=== PATIENT | male | born 1970 | race Caucasian/White ===

== ENCOUNTER 2019-08-11 18:51 | Inpatient (IN) | payer MEDICAID ==
[~2019-08-11] VITALS: Ht 172.7 cm; Wt 80.7 kg
[2019-08-11 23:00] VITALS: BP 116/81
[2019-08-12] MEDS ORDERED: PHENOL 1.4% 177 ML SPRAY BOTTLE PO PRN (00:30)
[2019-08-12] MEDS: MELATONIN 5 MG TABLET PO SCH ×2 (00:30→20:38)
[2019-08-12 07:45] VITALS: BP 109/78
[2019-08-12] MEDS: FAMOTIDINE 20 MG TABLET PO SCH ×2 (08:09→20:38)
[2019-08-12] MEDS: MULTIVITAMINS WITH MINERALS, THERAPEUTIC TABLET PO SCH (08:09)
[2019-08-12] MEDS: LevETIRAcetam 500 MG TABLET PO SCH ×2 (08:09→20:38)
[2019-08-12] MEDS: LIDOCAINE 5% TRANSDERMAL PATCH TD SCH ×2 (08:09→09:32)
[2019-08-12] MEDS: APIXABAN 5 MG TABLET PO SCH ×2 (08:09→20:38)
[2019-08-12 08:13] LABS: BASOPHILS % (AUTO) 0.9 % (0.0-2.0); EOSINOPHILS % (AUTO) 4.9 % (1.0-6.0); HEMATOCRIT 41.7 % (41-53); HEMOGLOBIN 14.1 g/dL (13.5-17.5); LYMPHOCYTES # (AUTO) 0.6 K/uL (1.0-4.8); LYMPHOCYTES % (AUTO) 17.7 % (22.0-44.0); MEAN CORPUSCULAR HEMOGLOBIN 29.1 pg (26.0-34.0); MEAN CORPUSCULAR HGB CONC 33.8 G/dL (31.0-37.0); MEAN CORPUSCULAR VOLUME 86 fL (80-100); MONOCYTES # (AUTO) 0.8 K/uL (0.1-1.0); MONOCYTES % (AUTO) 23.1 % (2.0-9.0); NEUTROPHILS # (AUTO) 1.7 K/uL (1.8-7.7); NEUTROPHILS % (AUTO) 53.4 % (40.0-70.0); PLATELET COUNT (AUTO) 170 K/uL (150-450); RED BLOOD CELL COUNT(AUTO) 4.83 MIL/uL (4.50-5.90); RED CELL DISTRIBUTION WIDTH 15.3 % (11.5-14.5)
[2019-08-12 08:23] LABS: ALANINE AMINOTRANSFERASE 48 U/L (12-78); ALBUMIN 3.9 g/dL (3.4-5.0); ALKALINE PHOSPHATASE 73 U/L (46-116); ANION GAP 10 mmol/L (8-16); ASPARTATE AMINOTRANSFERASE 46 U/L (15-37); BILIRUBIN,TOTAL 0.5 mg/dL (0.1-1.0); CALCIUM, TOTAL 9.2 mg/dL (8.8-10.5); CARBON DIOXIDE 27 mmol/L (22-29); CHLORIDE 106 mmol/L (98-107); CREATININE 1.04 mg/dL (0.60-1.30); GLOMERULAR FILTR. RATE CALC > 60 mL/min (>60); GLUCOSE,RANDOM 106 mg/dL (70-110); POTASSIUM 3.7 mmol/L (3.5-5.1); SODIUM SERUM 143 mmol/L (136-145); TOTAL PROTEIN, SERUM 7.9 g/dL (6.4-8.2)
[2019-08-12 08:27] LABS: UREA NITROGEN, BLOOD 18 mg/dL (7-18)
[2019-08-12] MEDS: POLYETHYLENE GLYCOL 3350 17 GM PACKET PO SCH (09:31)
[2019-08-12 16:30] VITALS: BP 114/76
[2019-08-12] MEDS: DOCUSATE SODIUM 250 MG CAPSULE PO SCH (20:37)
[2019-08-12] MEDS: -LIDODERM PATCH NOTE- MISC SCH ×2 (20:37)
[2019-08-12] MEDS: AMITRIPTYLINE HCL 50 MG TABLET PO SCH (20:37)
[2019-08-13 03:00] VITALS: BP 121/78
[2019-08-13 07:28] VITALS: BP 106/77
[2019-08-13] MEDS: FAMOTIDINE 20 MG TABLET PO SCH ×2 (07:42→20:18)
[2019-08-13] MEDS: MULTIVITAMINS WITH MINERALS, THERAPEUTIC TABLET PO SCH (07:42)
[2019-08-13] MEDS: APIXABAN 5 MG TABLET PO SCH ×2 (07:42→20:17)
[2019-08-13] MEDS: LevETIRAcetam 500 MG TABLET PO SCH ×2 (07:42→20:18)
[2019-08-13] MEDS: POLYETHYLENE GLYCOL 3350 17 GM PACKET PO SCH (07:43)
[2019-08-13] MEDS: LIDOCAINE 5% TRANSDERMAL PATCH TD SCH ×2 (07:44)
[2019-08-13] MEDS: HYDROCORTISONE 1% 30 GM CREAM TP PRN ×2 (09:24→15:31)
[2019-08-13 17:06] VITALS: BP 105/72
[2019-08-13] MEDS: MELATONIN 5 MG TABLET PO SCH (20:17)
[2019-08-13] MEDS: AMITRIPTYLINE HCL 50 MG TABLET PO SCH (20:17)
[2019-08-13] MEDS: DOCUSATE SODIUM 250 MG CAPSULE PO SCH (20:18)
[2019-08-13] MEDS: -LIDODERM PATCH NOTE- MISC SCH ×2 (20:18)
[2019-08-14 02:30] VITALS: BP 107/83
[2019-08-14 08:00] VITALS: BP 116/79
[2019-08-14] MEDS: FAMOTIDINE 20 MG TABLET PO SCH ×2 (08:20→21:17)
[2019-08-14] MEDS: APIXABAN 5 MG TABLET PO SCH ×2 (08:20→21:17)
[2019-08-14] MEDS: LIDOCAINE 5% TRANSDERMAL PATCH TD SCH ×2 (08:21)
[2019-08-14] MEDS: LevETIRAcetam 500 MG TABLET PO SCH ×2 (08:21→21:17)
[2019-08-14] MEDS: MULTIVITAMINS WITH MINERALS, THERAPEUTIC TABLET PO SCH (08:21)
[2019-08-14] MEDS: POLYETHYLENE GLYCOL 3350 17 GM PACKET PO SCH (08:21)
[2019-08-14 16:36] VITALS: BP 133/78
[2019-08-14] MEDS: MELATONIN 5 MG TABLET PO SCH (21:16)
[2019-08-14] MEDS: DOCUSATE SODIUM 250 MG CAPSULE PO SCH (21:17)
[2019-08-14] MEDS: -LIDODERM PATCH NOTE- MISC SCH ×2 (21:17→21:18)
[2019-08-14] MEDS: AMITRIPTYLINE HCL 50 MG TABLET PO SCH (21:17)
[2019-08-15 00:47] VITALS: BP 103/79
[2019-08-15 07:30] VITALS: BP 121/74
[2019-08-15] MEDS: LevETIRAcetam 500 MG TABLET PO SCH ×2 (07:44→20:24)
[2019-08-15] MEDS: FAMOTIDINE 20 MG TABLET PO SCH ×2 (07:44→20:23)
[2019-08-15] MEDS: POLYETHYLENE GLYCOL 3350 17 GM PACKET PO SCH (07:44)
[2019-08-15] MEDS: APIXABAN 5 MG TABLET PO SCH ×2 (07:44→20:24)
[2019-08-15] MEDS: LIDOCAINE 5% TRANSDERMAL PATCH TD SCH ×2 (07:45)
[2019-08-15] MEDS: MULTIVITAMINS WITH MINERALS, THERAPEUTIC TABLET PO SCH (07:46)
[2019-08-15] MEDS: ACETAMINOPHEN 325 MG TABLET PO PRN ×2 (13:06→20:25)
[2019-08-15] MEDS ORDERED: OxyCODONE HCL/ACETAMINOPHEN 5-325 MG TABLET PO PRN (14:15)
[2019-08-15 17:12] VITALS: BP 125/89
[2019-08-15] MEDS: CAMPHOR/MENTHOL 222 ML LOTION TP SCH ×2 (17:15→20:26)
[2019-08-15] MEDS: -LIDODERM PATCH NOTE- MISC SCH ×2 (20:23)
[2019-08-15] MEDS: AMITRIPTYLINE HCL 50 MG TABLET PO SCH (20:24)
[2019-08-15] MEDS: DOCUSATE SODIUM 250 MG CAPSULE PO SCH (20:24)
[2019-08-15] MEDS: MELATONIN 5 MG TABLET PO SCH (20:24)
[2019-08-15] MEDS: GuaiFENesin/D-METHORPHAN/PHENYLEPH 5 ML LIQUID ORAL.SYG PO PRN (20:26)
[2019-08-16 00:33] VITALS: BP 107/78
[2019-08-16 07:30] VITALS: BP 101/70
[2019-08-16] MEDS: POLYETHYLENE GLYCOL 3350 17 GM PACKET PO SCH (09:00)
[2019-08-16] MEDS: LIDOCAINE 5% TRANSDERMAL PATCH TD SCH ×2 (10:04→10:05)
[2019-08-16] MEDS: MULTIVITAMINS WITH MINERALS, THERAPEUTIC TABLET PO SCH (10:05)
[2019-08-16] MEDS: LevETIRAcetam 500 MG TABLET PO SCH ×2 (10:05→20:04)
[2019-08-16] MEDS: APIXABAN 5 MG TABLET PO SCH ×2 (10:05→20:04)
[2019-08-16] MEDS: FAMOTIDINE 20 MG TABLET PO SCH ×2 (10:05→20:04)
[2019-08-16] MEDS: MEGESTROL ACETATE 400 MG/10 ML SUSPENSION UDCUP PO SCH (10:06)
[2019-08-16] MEDS: CAMPHOR/MENTHOL 222 ML LOTION TP SCH ×3 (10:07→20:09)
[2019-08-16] MEDS: CALCIUM CARBONATE 500 MG CHEWABLE TABLET CHEW SCH ×3 (13:38→20:04)
[2019-08-16] MEDS ORDERED: MULT1CAP32 PO (16:10)
[2019-08-16] MEDS ORDERED: AMIT50TA3 PO (16:10)
[2019-08-16] MEDS ORDERED: ESOM20CA31 PO (16:10)
[2019-08-16] MEDS ORDERED: LEVE500T53 PO (16:10)
[2019-08-16] MEDS ORDERED: MELA5TAB3 PO (16:10)
[2019-08-16 16:56] VITALS: BP 112/72
[2019-08-16] MEDS: AMITRIPTYLINE HCL 50 MG TABLET PO SCH (20:03)
[2019-08-16] MEDS: DOCUSATE SODIUM 250 MG CAPSULE PO SCH (20:03)
[2019-08-16] MEDS: MELATONIN 5 MG TABLET PO SCH (20:03)
[2019-08-16] MEDS: -LIDODERM PATCH NOTE- MISC SCH ×2 (21:50)
[2019-08-17 00:17] VITALS: BP 111/70
[2019-08-17 08:00] VITALS: BP 125/83
[2019-08-17] MEDS: MEGESTROL ACETATE 400 MG/10 ML SUSPENSION UDCUP PO SCH (08:31)
[2019-08-17] MEDS: FAMOTIDINE 20 MG TABLET PO SCH ×2 (08:31→20:38)
[2019-08-17] MEDS: LevETIRAcetam 500 MG TABLET PO SCH ×2 (08:32→20:38)
[2019-08-17] MEDS: POLYETHYLENE GLYCOL 3350 17 GM PACKET PO SCH (08:32)
[2019-08-17] MEDS: LIDOCAINE 5% TRANSDERMAL PATCH TD SCH ×2 (08:32)
[2019-08-17] MEDS: CALCIUM CARBONATE 500 MG CHEWABLE TABLET CHEW SCH ×4 (08:32→20:38)
[2019-08-17] MEDS: APIXABAN 5 MG TABLET PO SCH ×2 (08:32→20:40)
[2019-08-17] MEDS: MULTIVITAMINS WITH MINERALS, THERAPEUTIC TABLET PO SCH (08:32)
[2019-08-17] MEDS: CAMPHOR/MENTHOL 222 ML LOTION TP SCH ×3 (08:33→20:39)
[2019-08-17] MEDS: ONDANSETRON HCL 4 MG TABLET PO PRN (12:27)
[2019-08-17 16:10] VITALS: BP 104/78
[2019-08-17] MEDS: HYDROCORTISONE 1% 30 GM CREAM TP PRN (18:21)
[2019-08-17] MEDS: GuaiFENesin/D-METHORPHAN/PHENYLEPH 5 ML LIQUID ORAL.SYG PO PRN (20:38)
[2019-08-17] MEDS: AMITRIPTYLINE HCL 50 MG TABLET PO SCH (20:38)
[2019-08-17] MEDS: MELATONIN 5 MG TABLET PO SCH (20:38)
[2019-08-17] MEDS: DOCUSATE SODIUM 250 MG CAPSULE PO SCH (20:39)
[2019-08-17] MEDS: -LIDODERM PATCH NOTE- MISC SCH ×2 (20:40)
[2019-08-18] VITALS: BP 110/70
[2019-08-18 06:34] LABS: BASOPHILS % (AUTO) 1.2 % (0.0-2.0); EOSINOPHILS % (AUTO) 6.9 % (1.0-6.0); HEMATOCRIT 42.1 % (41-53); HEMOGLOBIN 13.7 g/dL (13.5-17.5); LYMPHOCYTES # (AUTO) 0.8 K/uL (1.0-4.8); LYMPHOCYTES % (AUTO) 30.1 % (22.0-44.0); MEAN CORPUSCULAR HEMOGLOBIN 28.1 pg (26.0-34.0); MEAN CORPUSCULAR HGB CONC 32.6 G/dL (31.0-37.0); MEAN CORPUSCULAR VOLUME 86 fL (80-100); MONOCYTES # (AUTO) 0.4 K/uL (0.1-1.0); MONOCYTES % (AUTO) 15.5 % (2.0-9.0); NEUTROPHILS # (AUTO) 1.2 K/uL (1.8-7.7); NEUTROPHILS % (AUTO) 46.3 % (40.0-70.0); PLATELET COUNT (AUTO) 171 K/uL (150-450); RED CELL DISTRIBUTION WIDTH 15.1 % (11.5-14.5)
[2019-08-18 06:52] LABS: ALANINE AMINOTRANSFERASE 57 U/L (12-78); ALBUMIN 3.6 g/dL (3.4-5.0); ALKALINE PHOSPHATASE 80 U/L (46-116); ANION GAP 8 mmol/L (8-16); ASPARTATE AMINOTRANSFERASE 38 U/L (15-37); BILIRUBIN,TOTAL 0.4 mg/dL (0.1-1.0); CALCIUM, TOTAL 9.3 mg/dL (8.8-10.5); CARBON DIOXIDE 28 mmol/L (22-29); CHLORIDE 107 mmol/L (98-107); CREATININE 1.02 mg/dL (0.60-1.30); GLOMERULAR FILTR. RATE CALC > 60 mL/min (>60); GLUCOSE,RANDOM 97 mg/dL (70-110); POTASSIUM 3.5 mmol/L (3.5-5.1); SODIUM SERUM 143 mmol/L (136-145); TOTAL PROTEIN, SERUM 7.5 g/dL (6.4-8.2); UREA NITROGEN, BLOOD 10 mg/dL (7-18)
[2019-08-18 07:01] VITALS: BP 116/76
[2019-08-18] MEDS: LIDOCAINE 5% TRANSDERMAL PATCH TD SCH ×2 (08:21→08:22)
[2019-08-18] MEDS: APIXABAN 5 MG TABLET PO SCH ×2 (08:22→20:31)
[2019-08-18] MEDS: CAMPHOR/MENTHOL 222 ML LOTION TP SCH ×3 (08:22→20:31)
[2019-08-18] MEDS: CALCIUM CARBONATE 500 MG CHEWABLE TABLET CHEW SCH ×4 (08:22→20:30)
[2019-08-18] MEDS: MEGESTROL ACETATE 400 MG/10 ML SUSPENSION UDCUP PO SCH (08:22)
[2019-08-18] MEDS: MULTIVITAMINS WITH MINERALS, THERAPEUTIC TABLET PO SCH (08:22)
[2019-08-18] MEDS: POLYETHYLENE GLYCOL 3350 17 GM PACKET PO SCH (08:22)
[2019-08-18] MEDS: LevETIRAcetam 500 MG TABLET PO SCH ×2 (08:22→20:30)
[2019-08-18] MEDS: FAMOTIDINE 20 MG TABLET PO SCH ×2 (08:22→20:30)
[2019-08-18] MEDS: ACETAMINOPHEN 325 MG TABLET PO PRN (10:14)
[2019-08-18 16:32] VITALS: BP 105/75
[2019-08-18] MEDS: MELATONIN 5 MG TABLET PO SCH (20:29)
[2019-08-18] MEDS: AMITRIPTYLINE HCL 50 MG TABLET PO SCH (20:30)
[2019-08-18] MEDS: DOCUSATE SODIUM 250 MG CAPSULE PO SCH (20:30)
[2019-08-18] MEDS: -LIDODERM PATCH NOTE- MISC SCH ×2 (20:31→20:32)
[2019-08-18] MEDS: HYDROCORTISONE 1% 30 GM CREAM TP PRN (20:34)
[2019-08-19 03:43] VITALS: BP 124/85
[2019-08-19 07:59] VITALS: BP 117/84
[2019-08-19] MEDS: CALCIUM CARBONATE 500 MG CHEWABLE TABLET CHEW SCH ×4 (08:24→20:50)
[2019-08-19] MEDS: FAMOTIDINE 20 MG TABLET PO SCH ×2 (08:24→20:51)
[2019-08-19] MEDS: LevETIRAcetam 500 MG TABLET PO SCH ×2 (08:24→20:51)
[2019-08-19] MEDS: APIXABAN 5 MG TABLET PO SCH ×2 (08:24→20:52)
[2019-08-19] MEDS: MULTIVITAMINS WITH MINERALS, THERAPEUTIC TABLET PO SCH (08:25)
[2019-08-19] MEDS: LIDOCAINE 5% TRANSDERMAL PATCH TD SCH ×2 (08:25)
[2019-08-19] MEDS: POLYETHYLENE GLYCOL 3350 17 GM PACKET PO SCH (08:26)
[2019-08-19] MEDS: CAMPHOR/MENTHOL 222 ML LOTION TP SCH ×3 (08:26→20:52)
[2019-08-19 15:18] VITALS: BP 122/85
[2019-08-19] MEDS: ACETAMINOPHEN 325 MG TABLET PO PRN (15:18)
[2019-08-19] MEDS: DOCUSATE SODIUM 250 MG CAPSULE PO SCH (20:50)
[2019-08-19] MEDS: ONDANSETRON HCL 4 MG TABLET PO PRN (20:50)
[2019-08-19] MEDS: MELATONIN 5 MG TABLET PO SCH (20:51)
[2019-08-19] MEDS: AMITRIPTYLINE HCL 50 MG TABLET PO SCH (20:51)
[2019-08-19] MEDS: HYDROCORTISONE 1% 30 GM CREAM TP PRN (20:52)
[2019-08-19] MEDS: -LIDODERM PATCH NOTE- MISC SCH ×2 (21:51)
[2019-08-20 00:06] VITALS: BP 109/69
[2019-08-20] MEDS: POLYETHYLENE GLYCOL 3350 17 GM PACKET PO SCH (08:11)
[2019-08-20] MEDS: CALCIUM CARBONATE 500 MG CHEWABLE TABLET CHEW SCH ×4 (08:12→20:34)
[2019-08-20] MEDS: LIDOCAINE 5% TRANSDERMAL PATCH TD SCH ×2 (08:12)
[2019-08-20] MEDS: MULTIVITAMINS WITH MINERALS, THERAPEUTIC TABLET PO SCH (08:12)
[2019-08-20] MEDS: FAMOTIDINE 20 MG TABLET PO SCH ×2 (08:12→20:34)
[2019-08-20] MEDS: APIXABAN 5 MG TABLET PO SCH ×2 (08:12→20:36)
[2019-08-20] MEDS: LevETIRAcetam 500 MG TABLET PO SCH ×2 (08:12→20:36)
[2019-08-20] MEDS: HYDROCORTISONE 1% 30 GM CREAM TP PRN ×2 (08:13→18:36)
[2019-08-20] MEDS: CAMPHOR/MENTHOL 222 ML LOTION TP SCH ×3 (10:21→20:37)
[2019-08-20 10:41] VITALS: BP 115/87
[2019-08-20 16:22] VITALS: BP 111/76
[2019-08-20] MEDS: -LIDODERM PATCH NOTE- MISC SCH ×2 (20:33)
[2019-08-20] MEDS: DOCUSATE SODIUM 250 MG CAPSULE PO SCH (20:35)
[2019-08-20] MEDS: AMITRIPTYLINE HCL 50 MG TABLET PO SCH (20:35)
[2019-08-20] MEDS: MELATONIN 5 MG TABLET PO SCH (20:36)
[2019-08-21 01:14] VITALS: BP 105/72
[2019-08-21 08:00] VITALS: BP 121/75
[2019-08-21] MEDS: LIDOCAINE 5% TRANSDERMAL PATCH TD SCH ×2 (09:25)
[2019-08-21] MEDS: CAMPHOR/MENTHOL 222 ML LOTION TP SCH ×3 (09:26→20:34)
[2019-08-21] MEDS: MULTIVITAMINS WITH MINERALS, THERAPEUTIC TABLET PO SCH (09:26)
[2019-08-21] MEDS: LevETIRAcetam 500 MG TABLET PO SCH ×2 (09:26→20:33)
[2019-08-21] MEDS: FAMOTIDINE 20 MG TABLET PO SCH ×2 (09:26→20:32)
[2019-08-21] MEDS: APIXABAN 5 MG TABLET PO SCH ×2 (09:26→20:33)
[2019-08-21] MEDS: CALCIUM CARBONATE 500 MG CHEWABLE TABLET CHEW SCH ×4 (09:26→20:31)
[2019-08-21] MEDS: POLYETHYLENE GLYCOL 3350 17 GM PACKET PO SCH (09:26)
[2019-08-21] MEDS: ACETAMINOPHEN 325 MG TABLET PO PRN (13:24)
[2019-08-21 15:30] VITALS: BP 98/66
[2019-08-21] MEDS: DOCUSATE SODIUM 250 MG CAPSULE PO SCH (20:33)
[2019-08-21] MEDS: -LIDODERM PATCH NOTE- MISC SCH ×2 (20:33→20:34)
[2019-08-21] MEDS: MELATONIN 5 MG TABLET PO SCH (20:33)
[2019-08-21] MEDS: AMITRIPTYLINE HCL 50 MG TABLET PO SCH (20:33)
[2019-08-21 23:24] VITALS: BP 104/65
[2019-08-22 08:00] VITALS: BP 111/70
[2019-08-22] MEDS: FAMOTIDINE 20 MG TABLET PO SCH ×2 (09:00→20:13)
[2019-08-22] MEDS: LevETIRAcetam 500 MG TABLET PO SCH ×2 (09:00→20:13)
[2019-08-22] MEDS: APIXABAN 5 MG TABLET PO SCH ×2 (09:00→20:13)
[2019-08-22] MEDS: LIDOCAINE 5% TRANSDERMAL PATCH TD SCH ×2 (09:00)
[2019-08-22] MEDS: CALCIUM CARBONATE 500 MG CHEWABLE TABLET CHEW SCH ×4 (09:00→20:12)
[2019-08-22] MEDS: MULTIVITAMINS WITH MINERALS, THERAPEUTIC TABLET PO SCH (09:02)
[2019-08-22] MEDS: CAMPHOR/MENTHOL 222 ML LOTION TP SCH ×3 (09:03→20:13)
[2019-08-22] MEDS: POLYETHYLENE GLYCOL 3350 17 GM PACKET PO SCH (11:48)
[2019-08-22 16:15] VITALS: BP 118/75
[2019-08-22] MEDS: HYDROCORTISONE 1% 30 GM CREAM TP PRN (18:29)
[2019-08-22] MEDS: DOCUSATE SODIUM 250 MG CAPSULE PO SCH (20:12)
[2019-08-22] MEDS: -LIDODERM PATCH NOTE- MISC SCH ×2 (20:12)
[2019-08-22] MEDS: MELATONIN 5 MG TABLET PO SCH (20:13)
[2019-08-22] MEDS: AMITRIPTYLINE HCL 50 MG TABLET PO SCH (20:13)
[2019-08-23 00:24] VITALS: BP 107/71
[2019-08-23] MEDS: MULTIVITAMINS WITH MINERALS, THERAPEUTIC TABLET PO SCH (08:48)
[2019-08-23] MEDS: LevETIRAcetam 500 MG TABLET PO SCH ×2 (08:49→20:32)
[2019-08-23] MEDS: POLYETHYLENE GLYCOL 3350 17 GM PACKET PO SCH (08:49)
[2019-08-23] MEDS: FAMOTIDINE 20 MG TABLET PO SCH ×2 (08:49→20:32)
[2019-08-23] MEDS: APIXABAN 5 MG TABLET PO SCH ×2 (08:49→20:32)
[2019-08-23] MEDS: LIDOCAINE 5% TRANSDERMAL PATCH TD SCH ×2 (08:50)
[2019-08-23] MEDS: HYDROCORTISONE 1% 30 GM CREAM TP PRN (08:52)
[2019-08-23] MEDS: CAMPHOR/MENTHOL 222 ML LOTION TP SCH ×3 (08:53→21:06)
[2019-08-23] MEDS: CALCIUM CARBONATE 500 MG CHEWABLE TABLET CHEW SCH ×4 (08:54→20:32)
[2019-08-23 08:58] VITALS: BP 121/74
[2019-08-23 10:14] VITALS: BP 121/74
[2019-08-23] MEDS: GABAPENTIN 100 MG CAPSULE PO SCH ×2 (16:12→20:31)
[2019-08-23 16:40] VITALS: BP 111/74
[2019-08-23] MEDS: AMITRIPTYLINE HCL 50 MG TABLET PO SCH (20:31)
[2019-08-23] MEDS: DOCUSATE SODIUM 250 MG CAPSULE PO SCH (20:31)
[2019-08-23] MEDS: MELATONIN 5 MG TABLET PO SCH (20:32)
[2019-08-23] MEDS: -LIDODERM PATCH NOTE- MISC SCH ×2 (21:07)
[2019-08-24 00:22] VITALS: BP 110/76
[2019-08-24 07:15] VITALS: BP 100/69
[2019-08-24] MEDS: LIDOCAINE 5% TRANSDERMAL PATCH TD SCH ×2 (08:14→08:15)
[2019-08-24] MEDS: POLYETHYLENE GLYCOL 3350 17 GM PACKET PO SCH (08:15)
[2019-08-24] MEDS: APIXABAN 5 MG TABLET PO SCH ×2 (08:16→20:17)
[2019-08-24] MEDS: CALCIUM CARBONATE 500 MG CHEWABLE TABLET CHEW SCH ×4 (08:16→20:16)
[2019-08-24] MEDS: GABAPENTIN 100 MG CAPSULE PO SCH ×3 (08:16→20:17)
[2019-08-24] MEDS: FAMOTIDINE 20 MG TABLET PO SCH ×2 (08:16→20:17)
[2019-08-24] MEDS: CAMPHOR/MENTHOL 222 ML LOTION TP SCH ×3 (08:17→20:23)
[2019-08-24] MEDS: MULTIVITAMINS WITH MINERALS, THERAPEUTIC TABLET PO SCH (08:17)
[2019-08-24] MEDS: LevETIRAcetam 500 MG TABLET PO SCH ×2 (08:17→20:17)
[2019-08-24 17:15] VITALS: BP 107/82
[2019-08-24] MEDS: DOCUSATE SODIUM 250 MG CAPSULE PO SCH (20:17)
[2019-08-24] MEDS: MELATONIN 5 MG TABLET PO SCH (20:17)
[2019-08-24] MEDS: AMITRIPTYLINE HCL 50 MG TABLET PO SCH (20:17)
[2019-08-24] MEDS: -LIDODERM PATCH NOTE- MISC SCH ×2 (20:35)
[2019-08-25 05:00] VITALS: BP 110/67
[2019-08-25 07:41] VITALS: BP 113/72
[2019-08-25] MEDS: LIDOCAINE 5% TRANSDERMAL PATCH TD SCH ×2 (08:09)
[2019-08-25] MEDS: CAMPHOR/MENTHOL 222 ML LOTION TP SCH ×3 (08:10→20:22)
[2019-08-25] MEDS: MULTIVITAMINS WITH MINERALS, THERAPEUTIC TABLET PO SCH (08:11)
[2019-08-25] MEDS: APIXABAN 5 MG TABLET PO SCH ×2 (08:11→20:22)
[2019-08-25] MEDS: LevETIRAcetam 500 MG TABLET PO SCH ×2 (08:11→20:22)
[2019-08-25] MEDS: POLYETHYLENE GLYCOL 3350 17 GM PACKET PO SCH (08:11)
[2019-08-25] MEDS: CALCIUM CARBONATE 500 MG CHEWABLE TABLET CHEW SCH ×4 (08:12→20:21)
[2019-08-25] MEDS: GABAPENTIN 100 MG CAPSULE PO SCH ×3 (08:12→20:21)
[2019-08-25] MEDS: FAMOTIDINE 20 MG TABLET PO SCH ×2 (08:12→20:22)
[2019-08-25] MEDS: ACETAMINOPHEN 325 MG TABLET PO PRN (11:33)
[2019-08-25 18:08] VITALS: BP 110/71
[2019-08-25] MEDS: -LIDODERM PATCH NOTE- MISC SCH ×2 (20:22)
[2019-08-25] MEDS: MELATONIN 5 MG TABLET PO SCH (20:22)
[2019-08-25] MEDS: AMITRIPTYLINE HCL 50 MG TABLET PO SCH (20:22)
[2019-08-25] MEDS: DOCUSATE SODIUM 250 MG CAPSULE PO SCH (20:22)
[2019-08-25 23:22] VITALS: BP 125/57
[2019-08-26 07:30] VITALS: BP 114/81
[2019-08-26] MEDS: LIDOCAINE 5% TRANSDERMAL PATCH TD SCH ×2 (07:54)
[2019-08-26] MEDS: LevETIRAcetam 500 MG TABLET PO SCH ×2 (07:54→20:29)
[2019-08-26] MEDS: POLYETHYLENE GLYCOL 3350 17 GM PACKET PO SCH (07:54)
[2019-08-26] MEDS: MULTIVITAMINS WITH MINERALS, THERAPEUTIC TABLET PO SCH (07:55)
[2019-08-26] MEDS: GABAPENTIN 100 MG CAPSULE PO SCH ×3 (07:55→20:29)
[2019-08-26] MEDS: FAMOTIDINE 20 MG TABLET PO SCH ×2 (07:55→20:29)
[2019-08-26] MEDS: CALCIUM CARBONATE 500 MG CHEWABLE TABLET CHEW SCH ×4 (07:55→20:29)
[2019-08-26] MEDS: APIXABAN 5 MG TABLET PO SCH ×2 (07:55→20:29)
[2019-08-26] MEDS: CAMPHOR/MENTHOL 222 ML LOTION TP SCH ×3 (07:55→20:30)
[2019-08-26 15:00] VITALS: BP 112/79
[2019-08-26] MEDS: ACETAMINOPHEN 325 MG TABLET PO PRN (15:35)
[2019-08-26] MEDS: DOCUSATE SODIUM 250 MG CAPSULE PO SCH (20:29)
[2019-08-26] MEDS: AMITRIPTYLINE HCL 50 MG TABLET PO SCH (20:29)
[2019-08-26] MEDS: MELATONIN 5 MG TABLET PO SCH (20:29)
[2019-08-26] MEDS: -LIDODERM PATCH NOTE- MISC SCH ×2 (20:30)
[2019-08-27 05:00] VITALS: BP 124/79
[2019-08-27] MEDS: LIDOCAINE 5% TRANSDERMAL PATCH TD SCH ×2 (08:15)
[2019-08-27] MEDS: POLYETHYLENE GLYCOL 3350 17 GM PACKET PO SCH (08:15)
[2019-08-27] MEDS: CALCIUM CARBONATE 500 MG CHEWABLE TABLET CHEW SCH ×4 (08:16→21:21)
[2019-08-27] MEDS: APIXABAN 5 MG TABLET PO SCH ×2 (08:16→21:20)
[2019-08-27] MEDS: FAMOTIDINE 20 MG TABLET PO SCH ×2 (08:16→21:20)
[2019-08-27] MEDS: LevETIRAcetam 500 MG TABLET PO SCH ×2 (08:16→21:20)
[2019-08-27] MEDS: MULTIVITAMINS WITH MINERALS, THERAPEUTIC TABLET PO SCH (08:16)
[2019-08-27] MEDS: GABAPENTIN 100 MG CAPSULE PO SCH ×3 (08:16→21:20)
[2019-08-27] MEDS: CAMPHOR/MENTHOL 222 ML LOTION TP SCH ×3 (08:17→21:21)
[2019-08-27 08:34] VITALS: BP 103/63
[2019-08-27] MEDS: ACETAMINOPHEN 325 MG TABLET PO PRN (08:34)
[2019-08-27 18:44] VITALS: BP 130/78
[2019-08-27] MEDS: MELATONIN 5 MG TABLET PO SCH (21:20)
[2019-08-27] MEDS: DOCUSATE SODIUM 250 MG CAPSULE PO SCH (21:20)
[2019-08-27] MEDS: -LIDODERM PATCH NOTE- MISC SCH ×2 (21:21)
[2019-08-27] MEDS: AMITRIPTYLINE HCL 50 MG TABLET PO SCH (21:21)
[2019-08-27 23:13] VITALS: BP 114/79
[2019-08-28] VITALS (7 sets, daily range): BP systolic 102–126; BP diastolic 70–85
[2019-08-28] MEDS: APIXABAN 5 MG TABLET PO SCH ×2 (08:01→20:36)
[2019-08-28] MEDS: FAMOTIDINE 20 MG TABLET PO SCH ×2 (08:01→20:36)
[2019-08-28] MEDS: GABAPENTIN 100 MG CAPSULE PO SCH ×3 (08:01→20:36)
[2019-08-28] MEDS: LevETIRAcetam 500 MG TABLET PO SCH ×2 (08:01→20:36)
[2019-08-28] MEDS: CALCIUM CARBONATE 500 MG CHEWABLE TABLET CHEW SCH ×4 (08:01→20:35)
[2019-08-28] MEDS: MULTIVITAMINS WITH MINERALS, THERAPEUTIC TABLET PO SCH (08:01)
[2019-08-28] MEDS: CAMPHOR/MENTHOL 222 ML LOTION TP SCH ×3 (08:02→20:44)
[2019-08-28] MEDS: LIDOCAINE 5% TRANSDERMAL PATCH TD SCH ×2 (08:02)
[2019-08-28] MEDS: POLYETHYLENE GLYCOL 3350 17 GM PACKET PO SCH (08:10)
[2019-08-28] MEDS: -LIDODERM PATCH NOTE- MISC SCH ×2 (20:36)
[2019-08-28] MEDS: MELATONIN 5 MG TABLET PO SCH (20:36)
[2019-08-28] MEDS: AMITRIPTYLINE HCL 50 MG TABLET PO SCH (20:36)
[2019-08-28] MEDS: DOCUSATE SODIUM 250 MG CAPSULE PO SCH (20:36)
[2019-08-29 01:21] VITALS: BP 110/69
[2019-08-29 01:37] VITALS: BP 110/69
[2019-08-29 07:45] VITALS: BP 111/71
[2019-08-29 08:15] VITALS: BP 111/71
[2019-08-29] MEDS: ACETAMINOPHEN 325 MG TABLET PO PRN (09:19)
[2019-08-29] MEDS: CALCIUM CARBONATE 500 MG CHEWABLE TABLET CHEW SCH ×4 (09:21→19:58)
[2019-08-29] MEDS: APIXABAN 5 MG TABLET PO SCH ×2 (09:21→19:58)
[2019-08-29] MEDS: FAMOTIDINE 20 MG TABLET PO SCH ×2 (09:21→19:58)
[2019-08-29] MEDS: LevETIRAcetam 500 MG TABLET PO SCH ×2 (09:21→19:58)
[2019-08-29] MEDS: MULTIVITAMINS WITH MINERALS, THERAPEUTIC TABLET PO SCH (09:21)
[2019-08-29] MEDS: POLYETHYLENE GLYCOL 3350 17 GM PACKET PO SCH (09:21)
[2019-08-29] MEDS: GABAPENTIN 100 MG CAPSULE PO SCH ×3 (09:21→19:58)
[2019-08-29] MEDS: LIDOCAINE 5% TRANSDERMAL PATCH TD SCH ×2 (09:21→09:22)
[2019-08-29] MEDS: CAMPHOR/MENTHOL 222 ML LOTION TP SCH ×3 (09:22→19:59)
[2019-08-29 15:30] VITALS: BP 104/69
[2019-08-29] MEDS: MELATONIN 5 MG TABLET PO SCH (19:58)
[2019-08-29] MEDS: DOCUSATE SODIUM 250 MG CAPSULE PO SCH (19:58)
[2019-08-29] MEDS: AMITRIPTYLINE HCL 50 MG TABLET PO SCH (19:58)
[2019-08-29] MEDS: -LIDODERM PATCH NOTE- MISC SCH ×2 (19:59)
[2019-08-29] MEDS: HYDROCORTISONE 1% 30 GM CREAM TP PRN (21:00)
[2019-08-30 04:45] VITALS: BP 120/69
[2019-08-30 04:46] VITALS: BP 120/69
[2019-08-30 07:45] VITALS: BP 107/65
[2019-08-30] MEDS: POLYETHYLENE GLYCOL 3350 17 GM PACKET PO SCH (09:00)
[2019-08-30] MEDS: MULTIVITAMINS WITH MINERALS, THERAPEUTIC TABLET PO SCH (09:49)
[2019-08-30] MEDS: LIDOCAINE 5% TRANSDERMAL PATCH TD SCH ×2 (09:49)
[2019-08-30] MEDS: CALCIUM CARBONATE 500 MG CHEWABLE TABLET CHEW SCH ×4 (09:50→19:39)
[2019-08-30] MEDS: LevETIRAcetam 500 MG TABLET PO SCH ×2 (09:50→19:38)
[2019-08-30] MEDS: FAMOTIDINE 20 MG TABLET PO SCH ×2 (09:50→19:37)
[2019-08-30] MEDS: GABAPENTIN 100 MG CAPSULE PO SCH ×3 (09:50→19:38)
[2019-08-30] MEDS: APIXABAN 5 MG TABLET PO SCH ×2 (09:50→19:38)
[2019-08-30] MEDS: CAMPHOR/MENTHOL 222 ML LOTION TP SCH ×5 (09:53→21:00)
[2019-08-30 16:00] VITALS: BP 131/66
[2019-08-30 19:30] VITALS: BP 131/66
[2019-08-30] MEDS: MELATONIN 5 MG TABLET PO SCH (19:38)
[2019-08-30] MEDS: AMITRIPTYLINE HCL 50 MG TABLET PO SCH (19:38)
[2019-08-30] MEDS: DOCUSATE SODIUM 250 MG CAPSULE PO SCH (19:47)
[2019-08-30] MEDS: -LIDODERM PATCH NOTE- MISC SCH ×2 (20:16)
[2019-08-30] MEDS: HYDROCORTISONE 1% 30 GM CREAM TP PRN (20:51)
[2019-08-31 02:00] VITALS: BP 116/69
[2019-08-31 04:10] VITALS: BP 116/69
[2019-08-31 07:21] VITALS: BP 122/90
[2019-08-31] MEDS: ACETAMINOPHEN 325 MG TABLET PO PRN (07:47)
[2019-08-31] MEDS: FAMOTIDINE 20 MG TABLET PO SCH ×2 (08:02→20:33)
[2019-08-31] MEDS: GABAPENTIN 100 MG CAPSULE PO SCH ×3 (08:03→20:33)
[2019-08-31] MEDS: POLYETHYLENE GLYCOL 3350 17 GM PACKET PO SCH (08:03)
[2019-08-31] MEDS: APIXABAN 5 MG TABLET PO SCH ×2 (08:03→20:33)
[2019-08-31] MEDS: LIDOCAINE 5% TRANSDERMAL PATCH TD SCH ×2 (08:03→08:04)
[2019-08-31] MEDS: MULTIVITAMINS WITH MINERALS, THERAPEUTIC TABLET PO SCH (08:03)
[2019-08-31] MEDS: LevETIRAcetam 500 MG TABLET PO SCH ×2 (08:03→20:33)
[2019-08-31] MEDS: CAMPHOR/MENTHOL 222 ML LOTION TP SCH ×3 (08:04→20:33)
[2019-08-31] MEDS: CALCIUM CARBONATE 500 MG CHEWABLE TABLET CHEW SCH ×4 (08:04→20:33)
[2019-08-31] MEDS: HYDROCORTISONE 1% 30 GM CREAM TP PRN (08:05)
[2019-08-31 17:26] VITALS: BP 104/79
[2019-08-31] MEDS: DOCUSATE SODIUM 250 MG CAPSULE PO SCH (20:33)
[2019-08-31] MEDS: AMITRIPTYLINE HCL 50 MG TABLET PO SCH (20:33)
[2019-08-31] MEDS: -LIDODERM PATCH NOTE- MISC SCH ×2 (20:33)
[2019-08-31] MEDS: MELATONIN 5 MG TABLET PO SCH (20:33)
[2019-09-01 05:04] VITALS: BP 99/67
[2019-09-01 07:26] VITALS: BP 115/85
[2019-09-01] MEDS: ACETAMINOPHEN 325 MG TABLET PO PRN ×2 (07:26→14:05)
[2019-09-01] MEDS: GABAPENTIN 100 MG CAPSULE PO SCH ×3 (08:08→21:03)
[2019-09-01] MEDS: CALCIUM CARBONATE 500 MG CHEWABLE TABLET CHEW SCH ×4 (08:08→21:03)
[2019-09-01] MEDS: LIDOCAINE 5% TRANSDERMAL PATCH TD SCH ×2 (08:08)
[2019-09-01] MEDS: APIXABAN 5 MG TABLET PO SCH ×2 (08:09→21:03)
[2019-09-01] MEDS: MULTIVITAMINS WITH MINERALS, THERAPEUTIC TABLET PO SCH (08:09)
[2019-09-01] MEDS: FAMOTIDINE 20 MG TABLET PO SCH ×2 (08:09→21:03)
[2019-09-01] MEDS: LevETIRAcetam 500 MG TABLET PO SCH ×2 (08:09→21:03)
[2019-09-01] MEDS: POLYETHYLENE GLYCOL 3350 17 GM PACKET PO SCH (08:12)
[2019-09-01] MEDS: CAMPHOR/MENTHOL 222 ML LOTION TP SCH ×3 (08:12→21:04)
[2019-09-01 15:35] VITALS: BP 101/67
[2019-09-01] MEDS: HYDROCORTISONE 1% 30 GM CREAM TP PRN (21:03)
[2019-09-01] MEDS: DOCUSATE SODIUM 250 MG CAPSULE PO SCH (21:03)
[2019-09-01] MEDS: MELATONIN 5 MG TABLET PO SCH (21:03)
[2019-09-01] MEDS: AMITRIPTYLINE HCL 50 MG TABLET PO SCH (21:03)
[2019-09-01] MEDS: -LIDODERM PATCH NOTE- MISC SCH ×2 (21:07→21:08)
[2019-09-02 04:30] VITALS: BP 116/74
[2019-09-02 07:44] VITALS: BP 116/71
[2019-09-02] MEDS: LIDOCAINE 5% TRANSDERMAL PATCH TD SCH ×2 (08:33→08:34)
[2019-09-02] MEDS: GABAPENTIN 100 MG CAPSULE PO SCH ×3 (08:34→21:05)
[2019-09-02] MEDS: LevETIRAcetam 500 MG TABLET PO SCH ×2 (08:34→21:05)
[2019-09-02] MEDS: APIXABAN 5 MG TABLET PO SCH ×2 (08:35→21:05)
[2019-09-02] MEDS: CALCIUM CARBONATE 500 MG CHEWABLE TABLET CHEW SCH ×4 (08:35→21:06)
[2019-09-02] MEDS: MULTIVITAMINS WITH MINERALS, THERAPEUTIC TABLET PO SCH (08:35)
[2019-09-02] MEDS: FAMOTIDINE 20 MG TABLET PO SCH ×2 (08:35→21:05)
[2019-09-02] MEDS: POLYETHYLENE GLYCOL 3350 17 GM PACKET PO SCH (09:00)
[2019-09-02] MEDS: CAMPHOR/MENTHOL 222 ML LOTION TP SCH ×3 (09:02→21:00)
[2019-09-02 16:30] VITALS: BP 109/59
[2019-09-02] MEDS: DOCUSATE SODIUM 250 MG CAPSULE PO SCH (21:05)
[2019-09-02] MEDS: MELATONIN 5 MG TABLET PO SCH (21:05)
[2019-09-02] MEDS: AMITRIPTYLINE HCL 50 MG TABLET PO SCH (21:06)
[2019-09-02] MEDS: -LIDODERM PATCH NOTE- MISC SCH ×2 (21:06)
[2019-09-02] MEDS: HYDROCORTISONE 1% 30 GM CREAM TP PRN (21:07)
[2019-09-03 04:39] VITALS: BP 95/66
[2019-09-03 07:45] VITALS: BP 101/68
[2019-09-03] MEDS: LIDOCAINE 5% TRANSDERMAL PATCH TD SCH ×2 (08:10)
[2019-09-03] MEDS: FAMOTIDINE 20 MG TABLET PO SCH ×2 (08:11→20:45)
[2019-09-03] MEDS: LevETIRAcetam 500 MG TABLET PO SCH ×2 (08:11→20:45)
[2019-09-03] MEDS: CALCIUM CARBONATE 500 MG CHEWABLE TABLET CHEW SCH ×4 (08:11→20:45)
[2019-09-03] MEDS: MULTIVITAMINS WITH MINERALS, THERAPEUTIC TABLET PO SCH (08:11)
[2019-09-03] MEDS: APIXABAN 5 MG TABLET PO SCH ×2 (08:11→20:45)
[2019-09-03] MEDS: GABAPENTIN 100 MG CAPSULE PO SCH ×3 (08:11→20:45)
[2019-09-03] MEDS: POLYETHYLENE GLYCOL 3350 17 GM PACKET PO SCH (09:00)
[2019-09-03] MEDS: CAMPHOR/MENTHOL 222 ML LOTION TP SCH ×3 (09:03→20:49)
[2019-09-03 16:50] VITALS: BP 124/93
[2019-09-03] MEDS: MAGNESIUM HYDROXIDE SUSPENSION 30 ML UDCUP PO PRN (18:06)
[2019-09-03] MEDS: DOCUSATE SODIUM 250 MG CAPSULE PO SCH (20:45)
[2019-09-03] MEDS: AMITRIPTYLINE HCL 50 MG TABLET PO SCH (20:45)
[2019-09-03] MEDS: MELATONIN 5 MG TABLET PO SCH (20:45)
[2019-09-03] MEDS: -LIDODERM PATCH NOTE- MISC SCH ×2 (20:53)
[2019-09-03 23:20] VITALS: BP 126/81
[2019-09-04 07:15] VITALS: BP 109/76
[2019-09-04] MEDS: LIDOCAINE 5% TRANSDERMAL PATCH TD SCH ×2 (08:30→08:31)
[2019-09-04] MEDS: POLYETHYLENE GLYCOL 3350 17 GM PACKET PO SCH (08:31)
[2019-09-04] MEDS: CALCIUM CARBONATE 500 MG CHEWABLE TABLET CHEW SCH ×4 (08:31→21:00)
[2019-09-04] MEDS: GABAPENTIN 100 MG CAPSULE PO SCH ×3 (08:32→21:00)
[2019-09-04] MEDS: MULTIVITAMINS WITH MINERALS, THERAPEUTIC TABLET PO SCH (08:32)
[2019-09-04] MEDS: CAMPHOR/MENTHOL 222 ML LOTION TP SCH ×3 (08:32→21:00)
[2019-09-04] MEDS: LevETIRAcetam 500 MG TABLET PO SCH ×2 (08:32→21:00)
[2019-09-04] MEDS: FAMOTIDINE 20 MG TABLET PO SCH ×2 (08:32→21:00)
[2019-09-04] MEDS: APIXABAN 5 MG TABLET PO SCH ×2 (08:32→21:00)
[2019-09-04] MEDS: ACETAMINOPHEN 325 MG TABLET PO PRN (14:07)
[2019-09-04] MEDS: MELATONIN 5 MG TABLET PO SCH (21:00)
[2019-09-04] MEDS: DOCUSATE SODIUM 250 MG CAPSULE PO SCH (21:00)
[2019-09-04] MEDS: -LIDODERM PATCH NOTE- MISC SCH ×2 (21:01)
[2019-09-04] MEDS: AMITRIPTYLINE HCL 50 MG TABLET PO SCH (21:01)
[2019-09-04] MEDS ORDERED: DOCU-342 PO (22:30)
[2019-09-04] MEDS ORDERED: LIDO700A15 TD (22:30)
[2019-09-04] MEDS ORDERED: APIX5TAB PO (22:30)
[2019-09-04] MEDS ORDERED: SARN225L TP (22:30)
[2019-09-04] MEDS ORDERED: CALC-613 PO (22:30)
[2019-09-04] MEDS ORDERED: FAMO20 PO (22:30)
[2019-09-04] MEDS ORDERED: GABA-529 PO (22:30)
[2019-09-04] MEDS ORDERED: POLY17PO PO (22:30)
[2019-09-05] VITALS: BP 102/66
[2019-09-05] MEDS: MULTIVITAMINS WITH MINERALS, THERAPEUTIC TABLET PO SCH (08:30)
[2019-09-05] MEDS: FAMOTIDINE 20 MG TABLET PO SCH ×2 (08:30→19:35)
[2019-09-05] MEDS: CALCIUM CARBONATE 500 MG CHEWABLE TABLET CHEW SCH ×4 (08:30→19:34)
[2019-09-05] MEDS: APIXABAN 5 MG TABLET PO SCH ×2 (08:30→19:35)
[2019-09-05] MEDS: CAMPHOR/MENTHOL 222 ML LOTION TP SCH ×3 (08:30→19:36)
[2019-09-05] MEDS: LevETIRAcetam 500 MG TABLET PO SCH ×2 (08:30→19:35)
[2019-09-05] MEDS: LIDOCAINE 5% TRANSDERMAL PATCH TD SCH ×2 (08:30)
[2019-09-05] MEDS: GABAPENTIN 100 MG CAPSULE PO SCH ×3 (08:30→19:35)
[2019-09-05] MEDS: POLYETHYLENE GLYCOL 3350 17 GM PACKET PO SCH (08:31)
[2019-09-05] MEDS: ACETAMINOPHEN 325 MG TABLET PO PRN ×2 (08:32→16:04)
[2019-09-05 09:21] VITALS: BP 110/67
[2019-09-05 16:00] VITALS: BP 108/71
[2019-09-05] MEDS: AMITRIPTYLINE HCL 50 MG TABLET PO SCH (19:34)
[2019-09-05] MEDS: MELATONIN 5 MG TABLET PO SCH (19:35)
[2019-09-05] MEDS: DOCUSATE SODIUM 250 MG CAPSULE PO SCH (19:35)
[2019-09-05] MEDS: HYDROCORTISONE 1% 30 GM CREAM TP PRN (19:37)
[2019-09-05] MEDS: -LIDODERM PATCH NOTE- MISC SCH ×2 (21:49)
[2019-09-06 00:20] VITALS: BP 103/77
[2019-09-06] MEDS: ACETAMINOPHEN 325 MG TABLET PO PRN ×2 (05:14→11:42)
[2019-09-06 07:50] VITALS: BP 119/80
[2019-09-06] MEDS: LevETIRAcetam 500 MG TABLET PO SCH ×2 (08:54→20:56)
[2019-09-06] MEDS: MULTIVITAMINS WITH MINERALS, THERAPEUTIC TABLET PO SCH (08:55)
[2019-09-06] MEDS: LIDOCAINE 5% TRANSDERMAL PATCH TD SCH ×2 (08:55)
[2019-09-06] MEDS: GABAPENTIN 100 MG CAPSULE PO SCH ×3 (08:55→20:55)
[2019-09-06] MEDS: CALCIUM CARBONATE 500 MG CHEWABLE TABLET CHEW SCH ×4 (08:55→20:55)
[2019-09-06] MEDS: FAMOTIDINE 20 MG TABLET PO SCH ×2 (08:55→20:56)
[2019-09-06] MEDS: CAMPHOR/MENTHOL 222 ML LOTION TP SCH ×3 (08:56→20:56)
[2019-09-06] MEDS: POLYETHYLENE GLYCOL 3350 17 GM PACKET PO SCH (08:56)
[2019-09-06] MEDS: APIXABAN 5 MG TABLET PO SCH ×2 (09:00→20:56)
[2019-09-06] MEDS ORDERED: BACLOFEN 10 MG TABLET PO ONE (13:15)
[2019-09-06] MEDS: BACLOFEN 10 MG TABLET PO SCH ×3 (15:14→20:55)
[2019-09-06 16:00] VITALS: BP 105/60
[2019-09-06] MEDS: AMITRIPTYLINE HCL 50 MG TABLET PO SCH (20:55)
[2019-09-06] MEDS: MELATONIN 5 MG TABLET PO SCH (20:56)
[2019-09-06] MEDS: DOCUSATE SODIUM 250 MG CAPSULE PO SCH (20:56)
[2019-09-06] MEDS: -LIDODERM PATCH NOTE- MISC SCH ×2 (20:56)
[2019-09-07] VITALS: BP 110/60
[2019-09-07 06:23] LABS: BASOPHILS % (AUTO) 0.7 % (0.0-2.0); EOSINOPHILS % (AUTO) 4.9 % (1.0-6.0); HEMOGLOBIN 12.9 g/dL (13.5-17.5); LYMPHOCYTES # (AUTO) 0.9 K/uL (1.0-4.8); LYMPHOCYTES % (AUTO) 24.2 % (22.0-44.0); MEAN CORPUSCULAR HEMOGLOBIN 28.3 pg (26.0-34.0); MEAN CORPUSCULAR HGB CONC 33.9 G/dL (31.0-37.0); MEAN CORPUSCULAR VOLUME 84 fL (80-100); MONOCYTES # (AUTO) 0.6 K/uL (0.1-1.0); MONOCYTES % (AUTO) 14.9 % (2.0-9.0); NEUTROPHILS # (AUTO) 2.1 K/uL (1.8-7.7); NEUTROPHILS % (AUTO) 55.3 % (40.0-70.0); PLATELET COUNT (AUTO) 154 K/uL (150-450); RED BLOOD CELL COUNT(AUTO) 4.54 MIL/uL (4.50-5.90); RED CELL DISTRIBUTION WIDTH 15.6 % (11.5-14.5)
[2019-09-07 06:43] LABS: ALANINE AMINOTRANSFERASE 25 U/L (12-78); ALBUMIN 3.4 g/dL (3.4-5.0); ALKALINE PHOSPHATASE 55 U/L (46-116); ANION GAP 7 mmol/L (8-16); ASPARTATE AMINOTRANSFERASE 22 U/L (15-37); BILIRUBIN,TOTAL 0.3 mg/dL (0.1-1.0); CALCIUM, TOTAL 8.3 mg/dL (8.8-10.5); CARBON DIOXIDE 28 mmol/L (22-29); CHLORIDE 107 mmol/L (98-107); GLOMERULAR FILTR. RATE CALC > 60 mL/min (>60); GLUCOSE,RANDOM 90 mg/dL (70-110); POTASSIUM 3.7 mmol/L (3.5-5.1); SODIUM SERUM 142 mmol/L (136-145); TOTAL PROTEIN, SERUM 6.8 g/dL (6.4-8.2); UREA NITROGEN, BLOOD 10 mg/dL (7-18)
[2019-09-07 08:00] VITALS: BP 111/77
[2019-09-07] MEDS: CALCIUM CARBONATE 500 MG CHEWABLE TABLET CHEW SCH ×4 (08:18→20:41)
[2019-09-07] MEDS: GABAPENTIN 100 MG CAPSULE PO SCH ×3 (08:19→20:41)
[2019-09-07] MEDS: APIXABAN 5 MG TABLET PO SCH (08:19)
[2019-09-07] MEDS: LevETIRAcetam 500 MG TABLET PO SCH ×2 (08:19→20:43)
[2019-09-07] MEDS: BACLOFEN 10 MG TABLET PO SCH ×3 (08:19→20:43)
[2019-09-07] MEDS: FAMOTIDINE 20 MG TABLET PO SCH ×2 (08:19→20:43)
[2019-09-07] MEDS: MULTIVITAMINS WITH MINERALS, THERAPEUTIC TABLET PO SCH (08:19)
[2019-09-07] MEDS: LIDOCAINE 5% TRANSDERMAL PATCH TD SCH ×2 (08:20→08:21)
[2019-09-07] MEDS: CAMPHOR/MENTHOL 222 ML LOTION TP SCH ×3 (08:21→20:43)
[2019-09-07] MEDS: POLYETHYLENE GLYCOL 3350 17 GM PACKET PO SCH (09:00)
[2019-09-07 15:30] VITALS: BP 126/71
[2019-09-07] MEDS: MAGNESIUM HYDROXIDE SUSPENSION 30 ML UDCUP PO PRN (15:47)
[2019-09-07] MEDS ORDERED: WARFARIN SODIUM 5 MG TABLET PO SCH (19:45)
[2019-09-07] MEDS: AMITRIPTYLINE HCL 50 MG TABLET PO SCH (20:41)
[2019-09-07] MEDS: DOCUSATE SODIUM 250 MG CAPSULE PO SCH (20:41)
[2019-09-07] MEDS: MELATONIN 5 MG TABLET PO SCH (20:41)
[2019-09-07] MEDS: -LIDODERM PATCH NOTE- MISC SCH ×2 (20:43)
[2019-09-07] MEDS ORDERED: WARF5 PO (21:20)
[2019-09-07] MEDS ORDERED: BACL5TAB PO (21:26)
[2019-09-08 01:45] VITALS: BP 122/68
[2019-09-08 06:25] LABS: BASOPHILS % (AUTO) 0.6 % (0.0-2.0); EOSINOPHILS % (AUTO) 4.7 % (1.0-6.0); HEMATOCRIT 37.5 % (41-53); HEMOGLOBIN 13.2 g/dL (13.5-17.5); LYMPHOCYTES % (AUTO) 28.8 % (22.0-44.0); MEAN CORPUSCULAR HEMOGLOBIN 29.7 pg (26.0-34.0); MEAN CORPUSCULAR HGB CONC 35.3 G/dL (31.0-37.0); MEAN CORPUSCULAR VOLUME 84 fL (80-100); MONOCYTES # (AUTO) 0.5 K/uL (0.1-1.0); MONOCYTES % (AUTO) 14.8 % (2.0-9.0); NEUTROPHILS # (AUTO) 1.9 K/uL (1.8-7.7); NEUTROPHILS % (AUTO) 51.1 % (40.0-70.0); PLATELET COUNT (AUTO) 158 K/uL (150-450); RED BLOOD CELL COUNT(AUTO) 4.46 MIL/uL (4.50-5.90); RED CELL DISTRIBUTION WIDTH 15.6 % (11.5-14.5)
[2019-09-08 06:38] LABS: INR 1.1 (0.9-1.1); PROTHROMBIN TIME 10.7 SEC (9.4-11.6)
[2019-09-08 08:00] VITALS: BP 102/62
[2019-09-08] MEDS: CAMPHOR/MENTHOL 222 ML LOTION TP SCH (09:00)
[2019-09-08] MEDS: POLYETHYLENE GLYCOL 3350 17 GM PACKET PO SCH (09:00)
[2019-09-08] MEDS: LIDOCAINE 5% TRANSDERMAL PATCH TD SCH ×2 (09:30)
[2019-09-08] MEDS: CALCIUM CARBONATE 500 MG CHEWABLE TABLET CHEW SCH ×2 (09:31→13:00)
[2019-09-08] MEDS: MULTIVITAMINS WITH MINERALS, THERAPEUTIC TABLET PO SCH (09:32)
[2019-09-08] MEDS: BACLOFEN 10 MG TABLET PO SCH (09:32)
[2019-09-08] MEDS: GABAPENTIN 100 MG CAPSULE PO SCH (09:33)
[2019-09-08] MEDS: FAMOTIDINE 20 MG TABLET PO SCH (09:34)
[2019-09-08] MEDS: LevETIRAcetam 500 MG TABLET PO SCH (09:34)
== END 2019-09-08 15:15 | disposition home health service (06) | DRG 58 ==
LOC: 2WR 22:20
PROVIDERS: ADMIT Physical Medicine & Rehabilitation
DX: I69.354 Hemiplegia and hemiparesis following cerebral infarction affecting left non-dominant side (principal); I63.411 Cerebral infarction due to embolism of right middle cerebral artery; F32.9 Major depressive disorder, single episode, unspecified; G40.909 Epilepsy, unspecified, not intractable, without status epilepticus; K59.00 Constipation, unspecified; Q21.1 Atrial septal defect; Z79.899 Other long term (current) drug therapy; Z85.841 Personal history of malignant neoplasm of brain; Z86.711 Personal history of pulmonary embolism; R13.10 Dysphagia, unspecified
CPT/HCPCS: 70450; 84134; 87081; 92507; 92508; 92523; 92526; 97110; 97112; 97116; 97150; 97163; 97166; 97530; 97535; 97537; 99366; Q0162